=== PATIENT | female | born 1930 | race Caucasian/White ===

== ENCOUNTER 2016-12-02 12:07 | Emergency (ER) | payer MEDICARE, OTHER ==
[2016-12-02 12:27] VITALS: BP 97/50
[2016-12-02] MEDS ORDERED: Silver Sulfadiazine 1%* 20 GM ONE (13:11)
[2016-12-02] MEDS ORDERED: Mupirocin 2% OINT* TUBE TOPICAL ONE (13:22)
--- NOTE | 2016-12-02 14:29 | UC ---
Eric Vasquez Angela[facility] on 12/02/16 at 1307 . Laceration HPI - HPI Summary HPI Summary: In Room Note: This pt is a 86 y/o female presenting to [facility] c/o laceration on right arm s/p cut while going through a door yesterday afternoon. She reports that her arm got caught on the door and lost skin. Pt additionally notes dysuria and "sensation of UTI." She denies painful urination, cough, SOB, chest pain. Pt is currently on aspirin. PMHx: atrial fibrillation. MD's Note: Vital signs are stable, afebrile. 07/03 discomfort, non-smoker, hypothyroid, aortic valve replacement. Visit history: congestive heart failure, multiple allergies, pacemaker. Nurses Note: pt was cut while going through a door. pt rt upper lower arm is bandaged. pt states this injury happened last night. pt thinks her last tetnus was less than 5 years ago. - History Of Current Complaint Chief Complaint: UCLaceration Stated Complaint: ARM LACERATION Time Seen by Provider: 12/02/16 12:57 Hx Obtained From: Patient Laceration Location: Arm - right Pain Intensity: 4 Pain Scale Used: 0-10 Numeric - Allergies/Home Medications Allergies/Adverse Reactions: Allergies Allergy/AdvReac Type Severity Reaction Status Date / Time Amlodipine [From Norvasc] Allergy Unknown Verified 01/01/14 17:22 Reaction Details Cefixime [From Suprax] Allergy Unknown Verified 01/01/14 17:22 Reaction Details Cephalexin [From Keflex] Allergy Unknown Verified 01/01/14 17:22 Reaction Details Chloroquine Allergy Unknown Verified 01/01/14 17:22 Reaction Details Epinephrine Allergy Unknown Verified 01/01/14 17:22 Reaction Details Levofloxacin [From Levaquin] Allergy Unknown Verified 01/01/14 17:22 Reaction Details Naproxen [From Aleve] Allergy Unknown Verified 01/01/14 17:22 Reaction Details Penicillins Allergy Unknown Verified 01/01/14 17:22 Reaction Details Sodium Benzoate [From Suprax] Allergy Unknown Verified 01/01/14 17:22 Reaction Details Statins Allergy Unknown Verified 01/01/14 17:22 Reaction Details Sulfa Antibiotics Allergy Unknown Verified 01/01/14 17:22 Reaction Details Home Medications: Home Medications Aspirin TAB* [Aspirin 325 MG TAB*] 650 mg PO DAILY 12/02/16 [History Confirmed 12/02/16] Diphenhydramine-Acetaminophen [Tylenol Pm Extra Strength 500-25 mg] 1 tab PO 12/10 [History] PMH/Surg Hx/FS Hx/Imm Hx Endocrine History: Hypothyroidism Cardiovascular History: Hypertension, Pacemaker/ICD, Atrial Fibrillation - Surgical History Surgical History: Yes Surgery Procedure, Year, and Place: UTERUS PROLAPSE SURGERY. AORTIC VALVE REPLACEMENT. PACEMAKER. THYROIDECTOMY. T&A. 2 knees. 1 hip. fistula repair - Family History Known Family History: Positive: Diabetes - mother - Social History Alcohol Use: Rare Substance Use Type: None Smoking Status (MU): Never Smoked Tobacco - Immunization History Most Recent Influenza Vaccination: FALL 2012 Most Recent Tetanus Shot: UP TO DATE Most Recent Pneumonia Vaccination: UP TO DATE Review of Systems Constitutional: Negative Skin: Other - laceration on right arm Eyes: Negative ENT: Negative Respiratory: Negative Cardiovascular: Negative Gastrointestinal: Negative Genitourinary: Frequency Motor: Negative Neurovascular: Negative Musculoskeletal: Negative Neurological: Negative All Other Systems Reviewed And Are Negative: Yes Physical Exam Triage Information Reviewed: Yes Vital Signs: Initial Vital Signs Temp 98.1 F 12/02/16 12:21 Pulse 59 12/02/16 12:21 Resp 18 12/02/16 12:21 BP 97/50 12/02/16 12:21 Pulse Ox 98 12/02/16 12:21 Vital Signs Reviewed: Yes - Additional Comments The patient is well-nourished in no acute distress and in no acute pain. The skin is warm and skin color reflects adequate perfusion. RIGHT FOREARM: THERE IS SKIN ABRAIDED AND AREAS OF BLEEDING. AREA #1: 3.3 CM OVAL, AREA #2: 3.0 CM X 2.0 CM BLEEDING AREA, AREA #3: 1.0 CM ABRAIDED AREA. HEENT: The head is normocephalic and atraumatic. The pupils are equal and reactive. The conjunctivae are clear and without drainage. Nares are patent and without drainage. Mouth reveals moist mucous membranes and the throat is without erythema and exudate. The external ears are intact. The ear canals are patent and without drainage. The tympanic membranes are intact. Neck is supple with full range of motion and non-tender. Respiratory: Chest is non-tender. Lungs are clear to auscultation and breath sounds are symmetrical and equal. Cardiovascular: HEART IS IRREGULARLY IRREGULAR CONSISTENT WITH ATRIAL FIBRILLATION. There is no murmur or rub auscultated. There is no peripheral edema and pulses are symmetrical and equal. Abdomen: The abdomen is soft and non-tender. There are normal bowel sounds heard in all four quadrants and there is no organomegaly palpated. Musculoskeletal: There is no back pain noted. Extremities are non-tender with full range of motion. There is good capillary refill. There is no peripheral edema or calf tenderness elicited. Neurological: Patient is alert and oriented to person, place and time. The patient has symmetrical motor strength in all four extremities. Psychiatric: The patient has an appropriate affect and does not exhibit any anxiety or depression. Laceration Course/Dx - Course/Dx Course Of Treatment: On exam, HEART IS IRREGULARLY IRREGULAR CONSISTENT WITH ATRIAL FIBRILLATION. ON RIGHT FOREARM: THERE IS SKIN ABRAIDED AND AREAS OF BLEEDING. AREA #1: 3.3 CM OVAL, AREA #2: 3.0 CM X 2.0 CM BLEEDING AREA, AREA #3 : 1.0 CM ABRAIDED AREA. MDM: These areas were cleaned and nonviable skin was debrided. The area was soaked; Bactroban was placed, nonstick dressing, gauze, and shamar wrap were placed. The pt was given a sling. The pt was instructed to recheck with her PCP in 2 days and to leave the dressing on until her re-check. The pt additionally c/o vague dysuria. UA was obtained. UA is negative for UTI. I discussed with her and it sounds like she has a UTI even though her UA is negative. I treated her with Macrobid for 5 days. Medications have been included in the original chart and reviewed. Normal BP reading and no follow-up instructions required. - Differential Dx - Laceration/Wound Provider Diagnoses: 1. Abrasion of right forearm. 2. UTI Discharge - Discharge Plan Condition: Stable Disposition: HOME Prescriptions: Nitrofurantoin Monohyd Macro [Macrobid] 100 mg PO BID #10 cap Patient Education Materials: Urinary Tract Infection in Women (ED), Abrasion ( ED) Referrals: Sara Quick MD [Primary Care Provider] - Additional Instructions: WE DISCUSSED: ABRASIONS and Urinary Tract Infection 1. Unless this starts to hurt more, leave the dressing on until you follow up on Sunday. 2. Elevate arm. 3. Use sling to keep it protected; you can take off the sling to use a walker. 4. Watch for any red lines or fever, chills or increasing pain that would mean you have an infection. 5. No antibiotic by mouth is needed at this time. 6. This will take 2-3 weeks to heal. 7. Re-dress with Bactroban every other day and non-stick dressings and gauze and shamar wrap beginning in 2 days. 8. Call us with any questions or concerns AT ANY TIME. 9. Go to ED for increased pain, swelling, temperature, redness. 10. Call Dr. Quick to be followed up on Sunday if it is still bleeding. Otherwise, later in the week. 11. I have also treated you for a urinary tract infection; call Dr. Quick if the symptoms continue on Sunday. You should be improving by then or certainly by Sunday. The documentation as recorded by the Eric tay Angela accurately reflects the service I personally performed and the decisions made by me, Jorge Burnette MD.
== END 2016-12-02 14:40 | disposition home or self-care (01) ==
LOC: UCEAST 12:07
DX: S40.811A Abrasion of right upper arm, initial encounter (principal); N39.0 Urinary tract infection, site not specified; Z95.2 Presence of prosthetic heart valve; Z95.0 Presence of cardiac pacemaker; I48.91 Unspecified atrial fibrillation; W45.8XXA Other foreign body or object entering through skin, initial encounter
CPT/HCPCS: 81003; 99213; A9270-GY; G0463

== ENCOUNTER 2016-12-07 09:16 | Emergency (ER) | payer MEDICARE, OTHER ==
[2016-12-07 10:02] VITALS: BP 124/32
--- NOTE | 2016-12-07 10:27 | UC ---
HPI Wound/Suture Re-check - HPI Summary HPI Summary: This is an 86 yo female who returns for follow up regarding the wound over her R arm. She was seen 12/02 for the same complaint which was the date of injury. She was tx'd for a UTI at that time with Macrobid. She has changed the bandage twice, once by her caregiver and the other by Dr Quick's office. She reports some increased redness last night. No fever, chills, malaise or significant drainage. - History Of Current Complaint Chief Complaint: UCSkin Stated Complaint: WOUND RECHECK - Allergies/Home Medications Allergies/Adverse Reactions: Allergies Allergy/AdvReac Type Severity Reaction Status Date / Time Amlodipine [From Norvasc] Allergy Unknown Verified 12/07/16 10:00 Reaction Details Cefixime [From Suprax] Allergy Unknown Verified 12/07/16 10:00 Reaction Details Cephalexin [From Keflex] Allergy Unknown Verified 12/07/16 10:00 Reaction Details Chloroquine Allergy Unknown Verified 12/07/16 10:00 Reaction Details Epinephrine Allergy Unknown Verified 12/07/16 10:00 Reaction Details Levofloxacin [From Levaquin] Allergy Unknown Verified 12/07/16 10:00 Reaction Details Naproxen [From Aleve] Allergy Unknown Verified 12/07/16 10:00 Reaction Details Penicillins Allergy Unknown Verified 12/07/16 10:00 Reaction Details Sodium Benzoate [From Suprax] Allergy Unknown Verified 12/07/16 10:00 Reaction Details Statins Allergy Unknown Verified 12/07/16 10:00 Reaction Details Sulfa Antibiotics Allergy Unknown Verified 12/07/16 10:00 Reaction Details PMH/Surg Hx/FS Hx/Imm Hx Cardiovascular History: Congestive Heart Failure, Atrial Fibrillation - Surgical History Surgical History: Yes Surgery Procedure, Year, and Place: UTERUS PROLAPSE SURGERY. AORTIC VALVE REPLACEMENT. PACEMAKER. THYROIDECTOMY. T&A. 2 knees. 1 hip. fistula repair - Family History Known Family History: Positive: Diabetes - mother - Social History Alcohol Use: Rare Substance Use Type: None Smoking Status (MU): Never Smoked Tobacco - Immunization History Most Recent Influenza Vaccination: FALL 2012 Most Recent Tetanus Shot: UP TO DATE Most Recent Pneumonia Vaccination: UP TO DATE Review of Systems Constitutional: Negative Skin: Other - wound ENT: Negative Respiratory: Negative Cardiovascular: Negative Gastrointestinal: Negative Genitourinary: Negative Motor: Negative Neurovascular: Negative Musculoskeletal: Negative Neurological: Negative Psychological: Negative Is Patient Immunocompromised?: No All Other Systems Reviewed And Are Negative: Yes Physical Exam Triage Information Reviewed: Yes Appearance: Well-Appearing - accompanied by her Vital Signs: Initial Vital Signs Temp 98.6 F 12/07/16 09:52 Pulse 60 12/07/16 09:52 Resp 16 12/07/16 09:52 BP 124/32 12/07/16 09:52 Pulse Ox 95 12/07/16 09:52 Vital Signs Reviewed: Yes ENT Exam: Normal ENT: Positive: Hearing grossly normal Neck: Positive: Supple, Nontender Respiratory: Positive: Lungs clear. Negative: Crackles, Rhonchi, Wheezing Cardiovascular: Positive: RRR, Murmur:Sys:Grade _?_/ - 4/6 murmur Abdomen Description: Positive: Soft Musculoskeletal: Positive: Strength Intact Skin: Positive: Other - 3 open wounds over dorsal R lower arm. beefy red base and mild purulent drainage. Minimal surrounding erythema and edema Course/Dx - Course Course Of Treatment: Instructions given to cont wound care with daily dressing change. Start Keflex for concern of potential infection. Follow up recommended in ~5d either here or with Dr Quick. Of note Keflex is listed as an allergy, but she reports only PCN which caused a tingling sensation in her fingers - Differential Dx - Laceration/Wound Differential Diagnoses: Abscess, Cellulitis, Healing Wound Provider Diagnoses: 1. R arm wound - complicated by mild infection Discharge - Discharge Plan Condition: Stable Disposition: HOME Prescriptions: Cephalexin CAP* [Keflex CAP*] 500 mg PO TID #21 cap Patient Education Materials: Acute Wound Care (ED) Referrals: Sara Quick MD [Primary Care Provider] - 5 Days Additional Instructions: Instructions: 1. Take antibiotics as directed for the next 7d 2. Change dressing daily, apply antibiotic ointment cover with non-stick dressing and wrap 3. Monitor for worsening signs of infection
== END 2016-12-07 10:30 | disposition home or self-care (01) ==
LOC: UCEAST 09:16
DX: L08.89 Other specified local infections of the skin and subcutaneous tissue (principal); S41.101D Unspecified open wound of right upper arm, subsequent encounter; X58.XXXD Exposure to other specified factors, subsequent encounter; Z88.0 Allergy status to penicillin; Z88.2 Allergy status to sulfonamides; I50.9 Heart failure, unspecified; I48.91 Unspecified atrial fibrillation
CPT/HCPCS: 99212; G0463

== ENCOUNTER 2017-01-03 12:38 | Emergency (ER) | payer MEDICARE, OTHER ==
[2017-01-03 12:48] VITALS: BP 96/69
--- NOTE | 2017-01-03 13:17 | UC ---
Lower Extremity/Ankle HPI - HPI Summary HPI Summary: WAS GOING TO TAKE HER PANTS OFF WHEN SHE LOST HER BALANCE AND FELL. STRUCK HER RIGHT LATERAL THIGH ON THE TILE FLOOR. NOW HAS PAIN AND SWELLING. LIGHTLY HIT RIGHT SIDE OF HEAD ON THE GROUND. NO LOC. DENIES GAMBINO, NAUSEA, VISUAL DISTURBANCE , DIZZINESS. AT BASELINE WALKS WITH A WALKER. PAIN IS WORSE WITH WEIGHT BEARING. STATES PAIN FEELS MORE IN THE SOFT TISSUES THAN IN THE JOINTS. - History of Current Complaint Chief Complaint: UCLowerExtremity Stated Complaint: LEG INJURY Time Seen by Provider: 01/03/17 12:53 Hx Obtained From: Patient, Family/Apiculturist - Onset/Duration: Sudden Onset, Lasting Hours Severity Initially: Moderate Severity Currently: Moderate Pain Intensity: 5 Pain Scale Used: 0-10 Numeric Aggravating Factor(s): Standing, Ambulation Alleviating Factor(s): Rest Able to Bear Weight: Yes - Allergies/Home Medications Allergies/Adverse Reactions: Allergies Allergy/AdvReac Type Severity Reaction Status Date / Time Amlodipine [From Norvasc] Allergy Unknown Verified 12/07/16 10:00 Reaction Details Cefixime [From Suprax] Allergy Unknown Verified 12/07/16 10:00 Reaction Details Cephalexin [From Keflex] Allergy Unknown Verified 12/07/16 10:00 Reaction Details Chloroquine Allergy Unknown Verified 12/07/16 10:00 Reaction Details Epinephrine Allergy Unknown Verified 12/07/16 10:00 Reaction Details Levofloxacin [From Levaquin] Allergy Unknown Verified 12/07/16 10:00 Reaction Details Naproxen [From Aleve] Allergy Unknown Verified 12/07/16 10:00 Reaction Details Penicillins Allergy Unknown Verified 12/07/16 10:00 Reaction Details Sodium Benzoate [From Suprax] Allergy Unknown Verified 12/07/16 10:00 Reaction Details Statins Allergy Unknown Verified 12/07/16 10:00 Reaction Details Sulfa Antibiotics Allergy Unknown Verified 12/07/16 10:00 Reaction Details PMH/Surg Hx/FS Hx/Imm Hx Endocrine History: Hypothyroidism Cardiovascular History: Cardiac Disease, Hypertension, Atrial Fibrillation - Surgical History Surgical History: Yes Surgery Procedure, Year, and Place: UTERUS PROLAPSE SURGERY. AORTIC VALVE REPLACEMENT. PACEMAKER. THYROIDECTOMY. T&A. 2 knees. 1 hip. fistula repair - Family History Known Family History: Positive: Diabetes - mother - Social History Alcohol Use: Rare Substance Use Type: None Smoking Status (MU): Never Smoked Tobacco - Immunization History Most Recent Influenza Vaccination: FALL 2012 Most Recent Tetanus Shot: UP TO DATE Most Recent Pneumonia Vaccination: UP TO DATE Review of Systems Constitutional: Negative Skin: Negative Respiratory: Negative Cardiovascular: Negative Gastrointestinal: Negative Musculoskeletal: Myalgia All Other Systems Reviewed And Are Negative: Yes Physical Exam Triage Information Reviewed: Yes Appearance: Well-Appearing, No Pain Distress, Well-Nourished Vital Signs: Initial Vital Signs Temp 98.1 F 01/03/17 12:44 Pulse 59 01/03/17 12:44 Resp 16 01/03/17 12:44 BP 96/69 01/03/17 12:44 Pulse Ox 97 01/03/17 12:44 Vital Signs Reviewed: Yes Eyes: Positive: Conjunctiva Clear ENT: Positive: Hearing grossly normal, TMs normal Neck: Positive: Supple Respiratory: Positive: No respiratory distress, No accessory muscle use Cardiovascular: Positive: Pulses Normal Abdomen Description: Positive: Soft Musculoskeletal: Positive: ROM Intact, Other: - FULLNESS AND TENDERNESS OVER RIGHT LATERAL UPPER LEG Neurological: Positive: Alert Psychological: Positive: Age Appropriate Behavior Skin: Negative: rashes Diagnostics - Radiology RIIGHT FEMUR XRAY Xray Interpretation: No Acute Changes Radiology Interpretation Completed By: Radiologist Lower Extremity Course/Dx - Differential Dx/Diagnosis Provider Diagnoses: CONTUSION RIGHT LEG Discharge - Discharge Plan Condition: Stable Disposition: HOME Patient Education Materials: Contusion in Adults (ED) Referrals: Sara Quick MD [Primary Care Provider] - If Needed Additional Instructions: XRAY TODAY UNREMARKABLE FOR FRACTURE OR DISLOCATION. REST, ICE CONTUSION: Your injury has resulted in a contusion -- a crushing of the deep tissues. No injury to important structures was detected during the physician's exam. Contusions vary in the amount of pain they cause, and in the length of time required for healing. Typically, the area will become bruised, and will remain painful to touch for two or three weeks. However, most patients are back to working and playing within a few days. After the initial period of rest and cold-packs, your symptoms (together with the doctor's recommendations) will determine how rapidly you can get back to full activity. Usually this means "do what feels okay, but don't do things that hurt." If re-examination was recommended, it's important to follow up as instructed. Call the doctor or return any time if pain increases, if swelling becomes severe, if you develop numbness or weakness in an injured extremity, or if any other alarming symptoms occur.
--- NOTE | 2017-01-03 13:53 | RAD ---
Indication: Lateral RIGHT femur pain post fall. 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 Comparison: No relevant prior exams available on the [facility] PACS for comparison. Technique: AP and lateral views RIGHT femur. Report: Normal articular alignment at the hip with moderately severe axial joint space narrowing with paucity of osteophytosis favoring sequela of inflammatory arthropathy over typical degenerative arthropathy. RIGHT total knee prosthesis in place with normal alignment. The caudal margin of the tibial component is not fully included in the [id number] on the AP view. No stigmata of prosthesis loosening or periprosthetic fracture within limits of femur exam. No fracture of the femur evident. Bone density appears decreased throughout. Skeletal muscle atrophy and vascular calcifications. Unremarkable soft tissue contours. IMPRESSION: No evidence for fracture.
== END 2017-01-03 14:20 | disposition home or self-care (01) ==
LOC: UCEAST 12:38
DX: S80.11XA Contusion of right lower leg, initial encounter (principal); E03.9 Hypothyroidism, unspecified; I10 Essential (primary) hypertension; I48.91 Unspecified atrial fibrillation; X58.XXXA Exposure to other specified factors, initial encounter; Y92.9 Unspecified place or not applicable
CPT/HCPCS: 99211; G0463

== ENCOUNTER 2017-02-06 16:13 | Inpatient (IN) | payer MEDICARE, OTHER ==
[2017-02-06 21:07] LABS: ABS Basophils 0.1 10^3/ul (0-0.2); ABS Eosinophils 0.2 10^3/ul (0-0.6); ABS Lymphocytes 0.8 10^3/ul (1.0-4.8); ABS Monocytes 0.8 10^3/ul (0-0.8); ABS Nucleated RBC 0.01 10^3/ul; Eosinophil % 2.2 % (0-6); Hematocrit 35 % (35-47); Hemoglobin 11.1 g/dl (12.0-16.0); Lymphocyte % 10.4 % (25-47); Mean Corpuscular HGB Conc 31 g/dl (31-36); Mean Corpuscular Hemoglobin 28 pg (27-31); Mean Corpuscular Volume 90 fL (80-97); Mean Platelet Volume 11 um3 (7.4-10.4); Nucleated Red Blood Cells % 0.1; Platelet Count 151 10^3/ul (150-450); Red Blood Count 3.93 10^6/ul (4.0-5.4); Red Cell Distribution Width 17 % (10.5-15); White Blood Count 7.9 10^3/ul (3.5-10.8)
[2017-02-06 21:22] LABS: EGFR Non-African American 25.2 (>60)
--- NOTE | 2017-02-06 21:46 | RAD ---
Indication: Congestive heart failure. CHF. Comparison: January 01, 2014 Technique: Sitting AP and lateral chest views. Report: Mild prominence of the interstitial markings most prominent in the lower lung zones. Mild blunting of the posterior costophrenic angles consistent with small effusions. Negative for pneumothorax. RIGHT atrial and RIGHT ventricular level pacemaker leads. Cardiomegaly increased over the prior exam. Endovascular aortic valve prosthesis. Prominent central pulmonary vasculature with peripheral attenuation. Unremarkable mediastinal contours. IMPRESSION: Stigmata of chronic obstructive pulmonary disease and probable pulmonary arterial hypertension. Cardiomegaly and potential mild interstitial pulmonary edema.
[2017-02-06] MEDS: Pregabalin CAP(*) 25 MG PO SCH (22:30)
[2017-02-06] MEDS: Furosemide IV* 10 MG/ML VIAL (40 MG) IV SCH (23:28)
--- NOTE | 2017-02-07 00:01 | HP ---
CC: Dr. Leroy James at [facility]. * HISTORY AND PHYSICAL: DATE OF ADMISSION: 02/06/17 HISTORY OF PRESENT ILLNESS: Naz Kaur is an 86-year-old woman admitted with congestive heart failure, who was not responding to outpatient therapy at home. The patient underwent a transcatheter aortic valve replacement in the fall of 2012. This was done for the diagnosis of severe aortic stenosis. Following the procedure, she had a CVA with resultant right hemiparesis. She developed atrial fibrillation, complete heart block, and required placement of a permanent pacemaker. She had a complicated postoperative course with falling, development of a subdural hematoma in May 2013. She also had respiratory failure at that time with elevated cardiac biomarkers and documented left ventricular ejection fraction in the 30s. Additionally, she had cellulitis, urinary tract infection. She had persistent leg edema. In the summer, she was in [place], and at that time, she was admitted for congestive heart failure failing outpatient therapy at home. She had been on warfarin for atrial fibrillation, stopped because of a subdural hematoma, and then was on clopidogrel, which since then has been on stopped. During the 2013 hospitalization, she was seen by Dr. Negron from Cardiology here. He felt that she had fatigue, anorexia, and right-sided heart failure of unclear etiology over the previous several months. He was concerned about the possible paravalvular leak and the possibility of fistula between the paraaortic valve area into the right ventricle. The echo was compared to previous echoes and it was felt that this was unchanged. She was placed on IV bumetanide during this hospitalization and she diuresed from initial weight of 204 pounds down to 180 pounds. With this, her legs became more mobile, less swollen, and she had felt generally better, although remained quite fatigued. Hypokalemia and hypomagnesemia were repleted. She was started on Aldactone prior to discharge. She was not placed on lisinopril because of hypotension when she had been on it previously. She received physical therapy. She was felt to be at dry weight at the time of discharge. Lyrica had been stopped during this admission, but subsequently has been restarted. At the time of her discharge at that time, she was on torsemide 20 mg daily, spironolactone 25 mg one- half daily, clopidogrel 75 mg daily, magnesium oxide 400 mg twice a day, Toprol-XL 50 mg once a day, sertraline 50 mg once a day, flecainide 100 mg twice a day, ferrous sulfate 325 mg twice a day, Synthroid 75 mcg once a day, hydrochlorothiazide 25 mg once a day, and supplements. During the summer of 2014, when she was in [place], ([place] here in the [place]) her weight was 172 pounds. She had had various hospitalizations in the previous months. I felt that she had worsening edema. She was off the diuretics at that time and furosemide and spironolactone were restarted. She seemed to improve. Her weight down to 155 pounds at that time, then then 148-1/2 pounds.. Bupropion was prescribed for depression in addition to her sertraline. At one point her torsemide was cut back to 3 times a week. By the end of October, she was not taking the diuretics regularly and her weight was up to 160 pounds. Her would adjust her diuretics according to whether they were going out to eat, whether she was going to be in a restaurant and did not want to urinate. Echocardiogram done was limited due to poor parasternal windows. She was noted to have mild concentric LVH, estimated EF of 35% to 40%, moderate left atrial dilatation, right ventricular cavity size normal with mildly reduced systolic function, pacemaker wire noted, evidence of borderline elevated pulmonary hypertension, mild mitral regurgitation and mild mitral stenosis. Aortic valve gradient suggested nonobstructive prosthesis. 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 This was present on AMADOR performed 01/01/14 (or a possible annulus to artery fistula). There were felt to be no differences in her AMADOR. This was compared to 01/01/14. We tried to stop her Lyrica because of leg swelling, but she wanted to go back on it because of pain. The next time I heard from her next was in 2015. 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 When I saw her on 11/12/15, she was on Entresto. She was having diarrhea. In November 2015, she had the rectovaginal fistula repaired by Dr. Wick at [facility], then removal of the bag in February. In July 2016, she underwent a right total knee replacement. She had been doing fairly well over the course of the summer. We figured out that her diarrhea that she was having was due to lactose. Her main problem was her shoulder. She saw an orthopedist in [place] who told her that she could have surgery for her shoulder, but he would not guarantee the results. She was doing physical therapy. In November, she was treated for an abrasion on her forearm and she also had a possible UTI. Although the UA was negative, she was given a 5-day prescription for Macrobid. Then, about a month ago, the patient's called to make an appointment to be seen saying she seemed to be getting weaker,shaky. Of note, she had fallen, had been to the emergency room related to falls on December 02, January 03, January 29. She was seen in our office on 01/08/17. At that time, she complained of ongoing right thigh pain, visual disturbance, (subsequently felt to be due to droopy eyelids), and generalized weakness. She was seen again on 01/22/17 at which time she was complaining of weakness. At that time, I felt that she probably would be best off to be taking 20 rather than 40 of Lasix because of her elevated BUN and creatinine. On 01/29/17, she fell going into the toilet, had loss of consciousness. She went to the ER, was worked up. On 02/02/17, she was feeling sleepy, a lot weaker. She was having difficulty moving. It was difficult to transfer her. I saw her on 02/05/17. She gave the history of having fallen several times and feeling weak. She had been worse and she had fallen 2 days prior. Her breathing was more raspy. Her legs had been more swollen. She had difficulty moving her feet. She had been taking 20 mg of Lasix except for 1 day when she took 40. She was not eating much. She had recent labs done which I reviewed. I offered hospitalization which she declined, but she decided she did want to come in today and she is being admitted at this time. PAST MEDICAL HISTORY: Otherwise significant for the following medical problems: 1. Congestive heart failure. 2. History of atrial fibrillation. 3. History of complete heart block, status post pacemaker. 4. History of hypertension. 5. History of CVA (see above). 6. History of polymyalgia rheumatica. 7. History of fibromyalgia. 8. Osteoarthritis with severe arthritis of the right knee, status post total knee replacement. 9. History of depression. 10. Impingement, left shoulder with arthritis. 11. Hypothyroidism. 12. Status post TAVR for aortic stenosis. 13. History of mitral stenosis on echo. PAST SURGICAL HISTORY: Prior surgical procedures include: 1. Hemorrhoidectomy. 2. Vaginal reconstruction with mesh. 3. Thyroidectomy. 4. Cataract extraction. 5. Breast ductectomy. 6. Bilateral total knee replacements. 7. Hysterectomy. 8. TAVR. 9. Repair of rectovaginal fistula. CURRENT MEDICATIONS: As follows: 1. Lyrica 75 mg twice daily. 2. Levothyroxine 88 mcg daily. 3. Metoprolol 50 mg one-half daily. 4. Vitamin D3 2000 units daily. 5. Magnesium oxide 400 mg twice a day (the patient says she is not taking this) . 6. Cyanocobalamin B12 1000 mcg daily. 7. Spironolactone 25 mg daily (not clear if she is taking this). 8. Ramipril 2.5 mg daily. 9. Isosorbide mononitrate extended release 30 mg daily. 10. Furosemide 20 to 40 mg daily. 11. Loperamide 2 mg p.r.n. 12. Aspirin 325 mg daily. 13. Flecainide 100 mg daily. 14. Sertraline 100 mg daily. 15. Acetaminophen as needed. 16. Centrum Silver 1 daily. ALLERGIES/SENSITIVITIES: Are to SULFA, STATINS, KEFLEX (diarrhea), CHLOROQUINE PHOSPHATE, LEVAQUIN (tendinitis), EPINEPHRINE, NORVASC, PENICILLINS, ALEVE (GI bleeding), SUPRAX (ecchymosis). HABITS: Tobacco, none, but she is a former smoker. ETOH, none. FAMILY HISTORY: Noncontributory. SOCIAL HISTORY/PERSONAL HISTORY: The patient is . She lives in her own home. She has a full-time aide named Lita who is with her today. Her is with her as well. She is retired. She spends her [place] in [place] , [place] in [place], and also spends time in the [facility] area where she has a home. REVIEW OF SYSTEMS: She is very fatigued. Her appetite has been poor. She sleeps a lot. She denied fevers, chills, or sweats. Skin: She bruises very frequently. She had recent skin lacerations, tears, abrasions. HEENT: Diminished vision with drooping of her eyelids. Nodes: Negative. Heme: See above. Breast: Negative. Endocrine: See above. Respiratory: Occasional cough, shortness of breath. Cardiovascular: See above. GI: Diarrhea related to lactose. : She has urinary incontinence; however, wears Depends. CRYSTAL CALIBRATOR: Negative. Musculoskeletal: See above. Neuro: See above. Psychiatric: See above. PHYSICAL EXAMINATION GENERAL: She is an elderly white female in no acute distress. VITAL SIGNS: Blood pressure 118/60, pulse 58, respirations 18, temperature 97.3 , and O2 sat 95%. SKIN: She has scattered ecchymoses on her arms. HEENT: Atraumatic and normocephalic. She has a right facial droop. Mouth and pharynx are unremarkable. NECK: Supple. CHEST: Shows bibasilar rales. Pacemaker left upper chest. HEART: Regular. Normal S1, S2. Grade 2/6 systolic murmur. ABDOMEN: Soft with mild midabdominal tenderness without rebound or guarding. No masses or organomegaly. Bowel sounds are active. EXTREMITIES: Showed approximately 2+ pitting edema. NEUROLOGIC: She is alert and oriented. She has right central 7th nerve weakness. She has 4/5 weakness of the right upper extremity. She is not walking today. LABORATORY DATA: Pending. Previous labs done recently showed elevated BNP, LFTs, creatinine. IMPRESSION: The patient has failed outpatient therapy and I am admitting her for work up of her worsening heart failure, rising creatinine, and elevated LFTs. She will receive IV diuretics. She is a full code per her wishes. In terms of DVT prophylaxis, she is on aspirin. In view of her recent falls, including hitting her head, we will not give heparin. She has had a subdural hematoma in the past as well. She should get SCDs. Workup will include transthoracic echocardiogram, EKG, labs, renal and bladder ultrasound, liver ultrasound (right upper quadrant). I am also going to get venous duplex studies of her lower extremities. [id number]/[facility] #: [id number] [facility]ICAL CENTERLanny
[2017-02-07] MEDS ORDERED: Flecainide TAB* 100 MG PO ONE (01:00)
[2017-02-07] MEDS: Levothyroxine TAB* 88 MCG TAB PO SCH (05:41)
[2017-02-07] MEDS: Isosorbide Mononitrate ER TAB* 30 MG PO SCH (08:23)
[2017-02-07] MEDS: Furosemide IV* 10 MG/ML VIAL (40 MG) IV SCH (08:23)
[2017-02-07] MEDS: Flecainide TAB* 100 MG PO SCH (08:24)
[2017-02-07] MEDS: Pregabalin CAP(*) 25 MG PO SCH ×2 (08:24→20:18)
[2017-02-07] MEDS: Cholecalciferol TAB* 1000 UNITS PO SCH (08:24)
[2017-02-07] MEDS: Sertraline* 100 MG TAB PO SCH (08:24)
[2017-02-07] MEDS: Aspirin TAB* 325 MG PO SCH (08:24)
[2017-02-07] MEDS: Metoprolol Succinate XL TAB* 25 MG PO SCH (08:24)
[2017-02-07] MEDS: Ramipril CAP* 2.5 MG PO SCH (08:24)
[2017-02-07] MEDS: Spironolactone TAB* 25 MG PO SCH (08:25)
[2017-02-07] MEDS ORDERED: Influenza VAC *QUAD* 2017-18* 0.5 ML SYRINGE IM ONE (09:00)
--- NOTE | 2017-02-07 11:46 | RAD ---
HISTORY: Bilateral leg swelling TECHNIQUE: Multiple transverse and longitudinal ultrasound images were obtained of the veins of the bilateral lower extremities using grayscale, color Doppler, and spectral Doppler imaging with and without compression and with augmentation. FINDINGS: VEINS: The common femoral vein, deep femoral vein, femoral vein and popliteal vein are compressible throughout their course, with normal flow on color Doppler imaging and normal response to augmentation on spectral Doppler imaging. SOFT TISSUES: There is subcutaneous edema overlying the bilateral lower legs. IMPRESSION: No sonographic evidence of deep vein thrombosis.
--- NOTE | 2017-02-07 11:52 | RAD ---
INDICATION: Elevated liver function studies.] Quadrant pain. COMPARISON: None TECHNIQUE: Longitudinal and transverse scans of the abdomen were obtained. Doppler interrogation of the hepatic and portal venous system was performed. FINDINGS: Liver: The liver is normal in size and echogenicity. There are no focal masses. The liver measures 17.2 cm in cephalocaudal dimension. Vessels: There is normal hepatic and portal venous flow. Bile ducts: There is no evidence of intrahepatic or extrahepatic ductal dilatation. The common duct measures 0.4 cm. Gallbladder: There are small gallstones or gallbladder sludge. There is no evidence of cholelithiasis, thickening of the gallbladder wall, or pericholecystic fluid. Pancreas: The visualized portions of the pancreas are normal Spleen:The spleen is normal in size and echogenicity. The spleen measures 12.2 cm. Kidneys: The kidneys are normal in size and echogenicity. There are no masses or calculi. There is no evidence of hydronephrosis. The right kidney measures 10.1 x 4.5 x 3.9 cm and the left kidney measures 9.7 x 4.6 x 3.9 cm. IVC and aorta: The aorta and superior vena cava appear normal. Fluid: There is no ascites. Other: None. IMPRESSION: SMALL GALLSTONES VERSUS GALLBLADDER SLUDGE, OTHERWISE NEGATIVE
--- NOTE | 2017-02-07 12:02 | RAD ---
INDICATION: Chronic kidney disease COMPARISON: None TECHNIQUE: Real time ultrasound images of the urinary bladder were acquired with faustin scale and Doppler color flow imaging. FINDINGS: The frye of the urinary bladder are uniform in thickness measuring approximately 2 mm. The prevoid volume of the urinary bladder measures 6.5 x 4.8 x 7.2 cm yielding an approximate volume of 116 mL. No postvoid volume was acquired. Normal ureteral jets are identified bilaterally. IMPRESSION: Sonographically normal urinary bladder. The patient did not have to void at the conclusion of the procedure and therefore no post void residual was measured.
[2017-02-07] MEDS ORDERED: Perflutren Lipid Microsphere* 3 ML VIAL ONE (13:18)
--- NOTE | 2017-02-07 16:49 | ECHO ---
Amended Report Patient: BAHMAN GARRISON [facility] Rec#: [id number] : 1930 Date: 02/07/2017 Age: 86y Height: 172.72 cm / 68.0 in Weight: 90.72 kg / 199.9 lbs Sex: F BSA: 2.04 Room#: 402 Admit Date#: 02/06/2017 Type: Inpatient Referring: Sara Quick MD Reading: Mi Ferreira MD Electroencephalograph Technician: Toyin Whaley [facility] Transthoracic Echocardiogram Indication: CHF BP: 144/60 HR: 60 Rhythm: Paced Findings History: CHF,a-fib,s/p pacer insert,HTN,CVA,s/p TAVR,former smoker,2/6 systolic murmur. Technical Comments: The study is technically difficult. Definity used to enhance endocardial borders. The study is technically limited due to patient body habitus. The study is technically limited due to the patient's smoking history. Left Ventricle: The left ventricular chamber size is normal. Moderate concentric left ventricular hypertrophy is observed. Severe global hypokinesis of the left ventricle is observed.lateral wall moves best. There is severely decreased left ventricular systolic function. The estimated ejection fraction is 25-30%. There is abnormal ventricular septal wall motion consistent with right ventricular pacemaker. The left ventricular diastolic filling pattern is restrictive. Left Atrium: The left atrium is severely dilated. Right Ventricle: The right ventricle is mildly dilated. The right ventricular global systolic function is low normal. The septum has abnormal paradoxical motion consistent with RV pacemaker. A pacemaker wire is visualized in the right ventricle. Right Atrium: The right atrium is moderate to severely dilated. A pacemaker wire is visualized in the right atrium. Aortic Valve: The aortic valve structure is not well visualized. It is reported to be a TAVR/bioprosthetic valve. Type and size unavailable. There is moderate aortic regurgitation.Evidence of communication from aortic annulus into RV on 3 and 5 chamber images. There is severe aortic stenosis. The mean gradient of the aortic valve is 40.69 mmHg. The aortic valve area, by VTI's, is calculated at 0.6 cm2. Highest aortic valve velocity was acquired with Pedoff in apical position. Mitral Valve: There is mitral annular calcification. The mitral valve leaflets are moderately thickened. There is moderate mitral regurgitation. Tricuspid Valve: The tricuspid valve leaflets are normal. There is moderate tricuspid regurgitation. The right ventricular systolic pressure is estimated at 49 mmHg. There is evidence of moderate pulmonary hypertension. There is no tricuspid stenosis. Pulmonic Valve: The pulmonic valve appears normal. There is no evidence of pulmonic regurgitation. There is no pulmonic stenosis. Pericardium: A pericardial fat pad is visualized. Aorta: There is no dilatation of the ascending aorta. There is no dilatation of the aortic arch. There is no dilation of the aortic root. Pulmonary Artery: The main pulmonary artery appears normal. Venous: The venous system is not well visualized. Contrast: Definity was used to optimize study. A total of 5 ml used. Intravenous contrast was used to enhance endocardial border definition. Conclusions Amended Report Moderate concentric left ventricular hypertrophy is observed. Severe global hypokinesis of the left ventricle is observed.lateral wall moves best. The estimated ejection fraction is 25-30%. The left ventricular diastolic filling pattern is restrictive. The right ventricular global systolic function is low normal. The left atrium is severely dilated. The right atrium is moderate to severely dilated. The aortic valve is reported to be a TAVR/bioprosthetic valve, type and size unavailable. There is moderate aortic regurgitation multiple jets, shortened P 1/2, no reversal of flow in the descending aorta. Severe prosthetic stenosis with peak velocity across the aortic valve Greater Than 4 m/s, mean gradient 40 mmHg, DI 0.25. Evidence of communication from aortic annulus to RV on color images 3 and 5 chamber views. There is mitral annular calcification. The mitral valve leaflets are moderately thickened. There is moderate mitral regurgitation. There is moderate tricuspid regurgitation. There is evidence of moderate pulmonary hypertension estimated at 49 mmHg. Compared with prior echo of 12/16/14, EF has decreased from 35-40%, restrictive diastolic filling newly noted, the flow seen from AV annulus to right side seen previously, the AI is newly noted, severe is new. The degree of MR and TR has increased from mild, PA pressure previously 29 mmHg. Measurements Name Value Normal Range RVIDd (AP) 2D 2.4 cm (0.9 - 2.6) RVDdMajor (2D) 5.6 cm (2.2 - 4.4) RAd ISD 4CH 6.7 cm (3.4 - 4.9) RA (A4C)W 5.3 cm (2.9 - 4.6) IVSd (2D) 1.5 cm (0.6 - 1) LVPWd (2D) 1.3 cm (0.6 - 1) LVIDd (2D) 4.6 cm (3.6 - 5.4) LVIDs (2D) 3.8 cm - LV FS (2D) 17 % (25 - 45) Aortic Annulus 1.7 cm (1.4 - 2.6) Ao root diameter (2D) 2.6 cm (2.1 - 3.5) Ascending Ao 3 cm (2.1 - 3.4) Aortic arch 2.8 cm (1.8 - 3.4) Descending Ao 1.5 cm - LA dimension (AP) 2D 5.2 cm (2.3 - 3.8) LAd ISD 4CH 7.9 cm (2.9 - 5.3) LA ISD 4CH W 4.9 cm (2.5 - 4.5) Name Value Normal Range LA ESV SP 4CH (A/L) 105 ml - LA ESV SP 2CH (A/L) 123 ml - LA ESV BP (A/L) 116 ml - LA ESV BP (A/L) index 65.4 ml/m2 - LA ESV SP 4CH (MOD) 98 ml - LA ESV SP 2CH (MOD) 118 ml - Name Value Normal Range MV E-wave Vmax 1.2 m/sec - MV deceleration time 100 msec - MV A-wave Vmax 0.5 m/sec - MV E:A ratio 2.73 ratio - LV septal e' Vmax 0.04 m/sec - LV lateral e' Vmax 0.09 m/sec - LV E:e' septal ratio 30 ratio - LV E:e' lateral ratio 13.33 ratio - Name Value Normal Range AV Vmax 4.1 m/sec - AV VTI 106 cm - AV peak gradient 68.1 mmHg - AV mean gradient 40.69 mmHg - LVOT diameter 1.8 cm - LVOT Vmax 1.1 m/sec - LVOT VTI 26 cm - LVOT peak gradient 4.75 mmHg - LVOT mean gradient 2.41 mmHg - JOE (continuity Vmax) 0.7 cm2 - JOE (continuity VTI) 0.6 cm2 - AR PHT 291 msec - AR peak gradient 80.52 mmHg - Name Value Normal Range MR Vmax 4 m/sec - MR VTI 131.1 cm - Name Value Normal Range TR Vmax 3.2 m/sec - TR peak gradient 41 mmHg - RAP 8 mmHg - RVSP 49 mmHg - Name Value Normal Range PV Vmax 0.6 m/sec - PV peak gradient 1.49 mmHg -
[2017-02-07] MEDS ORDERED: Bumetanide IV* 0.25 MG/ML 4 ML VIAL SLOW PUSH ONE (18:00)
[2017-02-08 02:14] LABS: Urine Appearance Cloudy; Urine Blood 1+ (Negative); Urine Color Yellow; Urine Ketones Negative (Negative); Urine Protein 1+(30 mg/dL) (Negative); Urine Specific Gravity 1.011 (1.010-1.030); Urine Urobilinogen Negative (Negative)
[2017-02-08] MEDS: Levothyroxine TAB* 88 MCG TAB PO SCH (05:52)
[2017-02-08 06:04] LABS: Hematocrit 34 % (35-47); Hemoglobin 10.8 g/dl (12.0-16.0); Mean Corpuscular HGB Conc 32 g/dl (31-36); Mean Corpuscular Hemoglobin 29 pg (27-31); Mean Corpuscular Volume 89 fL (80-97); Mean Platelet Volume 10 um3 (7.4-10.4); Platelet Count 145 10^3/ul (150-450); Red Blood Count 3.78 10^6/ul (4.0-5.4); Red Cell Distribution Width 16 % (10.5-15); White Blood Count 6.9 10^3/ul (3.5-10.8)
[2017-02-08 06:19] LABS: EGFR Non-African American 23.5 (>60)
[2017-02-08] MEDS: Flecainide TAB* 100 MG PO SCH (08:32)
[2017-02-08] MEDS: Metoprolol Succinate XL TAB* 25 MG PO SCH (08:32)
[2017-02-08] MEDS ORDERED: Digoxin IV* 0.5 MG/2 ML AMP (0.25 MG/ML) IV SLOW PU ONE ×2 (08:33→14:57)
[2017-02-08] MEDS: Aspirin TAB* 325 MG PO SCH (08:34)
[2017-02-08] MEDS: Isosorbide Mononitrate ER TAB* 30 MG PO SCH (08:35)
[2017-02-08] MEDS: Ramipril CAP* 2.5 MG PO SCH (08:36)
[2017-02-08] MEDS: Spironolactone TAB* 25 MG PO SCH ×2 (08:38→09:41)
[2017-02-08] MEDS: Sertraline* 100 MG TAB PO SCH (08:38)
[2017-02-08] MEDS: Pregabalin CAP(*) 25 MG PO SCH ×2 (08:38→22:51)
[2017-02-08] MEDS: Cholecalciferol TAB* 1000 UNITS PO SCH (08:40)
--- NOTE | 2017-02-08 08:45 | PROCNOTE ---
Cardiology Procedure Note 02/08/2017 Dual chamber [employer] Pacemaker interrogation Placed Dr. Tawanda Lake ([phone]) on 12/06/2012 Presenting rhythm, atrial sensed, ventricular paced 3.5 years battery life Atrial lead: 418 ohms, measured and programmed sensitivity 0.3 mV RV lead: 437 ohms, 0.875 V @ 0.4 ms threshold (set 2.0 V @ 0.4 ms), measures sensitivity 9.3 mV, programmed 1.2 mV Set VVI lower rate 60 bpm Patient has been in atrial fibrillation for at least a year -DROSS SKIMMER 99.9% Impression: prison persistent atrial fibrillation Near 100% RV pacing
--- NOTE | 2017-02-08 09:28 | CONSULT ---
Subjective Date of Service: 02/08/17 Interval History: Admission Date: 02/06/17 Consult date: 02/08/2017 PMD/Service: Sara Quick MD Director Of Research: Dr. Leroy James at [facility]. CC: Weakness Reason for consult: CHF HISTORY OF PRESENT ILLNESS: Naz Kaur is an 86-year-old woman who is s/p transcatheter aortic valve replacement in the fall of 2012 for severe aortic stenosis complicated. 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 She subsequently had a fall and SDH 05/2013 and has been off anticoagulation. 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 She had a right TKR in 07/2016. Was treated for 5 days with macrobid 11/2016 for a possible UTI. Patient has become more weak and unsteady over the past month and in the ER several times since then due to falls. She became progressive weaker with loss of energy with edema poor appetite and was ultimately admitted to [facility]. She appear to be in low output heart failure with acute kidney insufficiency, ischemic vs. congestive hepatitis. Her laboratory work worsened with IV diuretics. A pacemaker evaluation showed extermination inspector persistent atrial fibrillation wtih complete RV pacing. An echocardiogram is as detailed below with what appears to be very significant aortic bioprosthetic dysfunction. She has an abnormal urinalysis and urine culture and is being treated for UTI. She knows the president, not the office services coordinator, confused on dates of medical procedures, thinks it is December, PAST MEDICAL HISTORY: Otherwise significant for the following medical problems: 1. Congestive heart failure. 2. History of atrial fibrillation. 3. History of complete heart block, status post pacemaker. 4. History of hypertension. 5. History of CVA 6. History of polymyalgia rheumatica. 7. History of fibromyalgia. 8. Osteoarthritis with severe arthritis of the right knee, status post total knee replacement. 9. History of depression. 10. Impingement, left shoulder with arthritis. 11. Hypothyroidism. 12. Status post TAVR for aortic stenosis. PAST SURGICAL HISTORY: Prior surgical procedures include: 1. Hemorrhoidectomy. 2. Vaginal reconstruction with mesh. 3. Thyroidectomy. 4. Cataract extraction. 5. Breast ductectomy. 6. Bilateral total knee replacements. 7. Hysterectomy. 8. TAVR. 9. Repair of rectovaginal fistula. CURRENT MEDICATIONS: As follows: 1. Lyrica 75 mg twice daily. 2. Levothyroxine 88 mcg daily. 3. Metoprolol 50 mg one-half daily. 4. Vitamin D3 2000 units daily. 5. Magnesium oxide 400 mg twice a day (the patient says she is not taking this) . 6. Cyanocobalamin B12 1000 mcg daily. 7. Spironolactone 25 mg daily (not clear if she is taking this). 8. Ramipril 2.5 mg daily. 9. Isosorbide mononitrate extended release 30 mg daily. 10. Furosemide 20 to 40 mg daily. 11. Loperamide 2 mg p.r.n. 12. Aspirin 325 mg daily. 13. Flecainide 100 mg daily. 14. Sertraline 100 mg daily. 15. Acetaminophen as needed. 16. Centrum Silver 1 daily. ALLERGIES/SENSITIVITIES: Are to SULFA, STATINS, KEFLEX (diarrhea), CHLOROQUINE PHOSPHATE, LEVAQUIN (tendinitis), EPINEPHRINE, NORVASC, PENICILLINS, ALEVE (GI bleeding), SUPRAX (ecchymosis). HABITS: Tobacco, none, but she is a former smoker. ETOH, none. FAMILY HISTORY: Noncontributory. SOCIAL HISTORY/PERSONAL HISTORY: The patient is . She lives in her own home. She has a full-time aide named Lita. Her is with her as well. She is retired. She spends her baker in [place], shields in [place], and also spends time in the [facility] area where she has a home. Medications Active Medications: Aspirin (Aspirin Tab*) 325 mg PO DAILY [facility] Last Admin: 02/08/17 08:34 Dose: 325 mg Cholecalciferol (Vitamin D Tab*) 2,000 units PO DAILY [facility] Last Admin: 02/08/17 08:40 Dose: 2,000 units Isosorbide Mononitrate (Imdur Er Tab*) 30 mg PO DAILY [facility] Last Admin: 02/08/17 08:35 Dose: Not Given Levothyroxine Sodium (Synthroid Tab*) 88 mcg PO DAILY@0600 [facility] Last Admin: 02/08/17 05:52 Dose: 88 mcg Pregabalin (Lyrica Cap(*)) 75 mg PO BID [facility] Last Admin: 02/08/17 08:38 Dose: 75 mg Ramipril (Altace Cap*) 2.5 mg PO DAILY [facility] Last Admin: 02/08/17 08:36 Dose: 2.5 mg Sertraline HCl (Zoloft*) 100 mg PO DAILY [facility] Last Admin: 02/08/17 08:38 Dose: 100 mg Spironolactone (Aldactone Tab*) 25 mg PO DAILY [facility] Last Admin: 02/08/17 08:38 Dose: Not Given Home Medications: Cholecalciferol TAB* [Vitamin D TAB*] 4,000 units PO DAILY 01/02/14 [History Confirmed 02/06/17] Cyanocobalamin TAB* [Vitamin B12 TAB*] 1,000 mcg PO DAILY 01/02/14 [History Confirmed 02/06/17] Flecainide TAB* [Tambocor TAB*] 100 mg PO BID 01/02/14 [History Confirmed ] Furosemide TAB* [Lasix TAB*] 40 mg PO DAILY 01/02/14 [History Confirmed 02/06/17 ] Hydrochlorothiazide TAB* [Hydrodiuril TAB*] 25 mg PO DAILY 01/02/14 [History Confirmed 02/06/17] Levothyroxine TAB* [Synthroid 75 MCG TAB*] 75 mcg PO DAILY 01/02/14 [History Confirmed 02/06/17] Metoprolol Succinate XL TAB* [Toprol XL TAB*] 50 mg PO DAILY 01/02/14 [History Confirmed 02/06/17] Multiple Vitamins W/ Minerals [Centrum Silver] 1 tab PO DAILY 01/02/14 [History Confirmed 02/06/17] Pregabalin [Lyrica] 75 mg PO QPM 01/02/14 [History Confirmed 01/03/17] Sertraline* [Zoloft*] 50 mg PO DAILY 01/02/14 [History Confirmed 02/06/17] Aspirin TAB* [Aspirin 325 MG TAB*] 325 mg PO BID 12/02/16 [History Confirmed ] Review of Systems - Measurements Intake and Output: Intake and Output Last 24 Hours 02/06/17 02/07/17 02/08/17 02/09/17 06:59 06:59 06:59 06:59 Intake Total 120 860 100 Output Total 400 450 Balance -280 410 100 Weight 200 lb 203 lb 6.4 oz Intake: Oral 120 860 100 Output: Urine 400 450 Other: Estimated Void Small Large # Bowel Movements 0 0 Estimated Stool Amount Medium # Voids 0 1 2 - Review of Systems Review of Systems Statement: All other review of systems negative, unless stated above. Objective Vital Signs: Temp Pulse Resp BP Pulse Ox 97.6 F 60 14 119/42 92 02/08/17 03:42 02/08/17 08:45 02/08/17 08:38 02/08/17 03:42 02/08/17 03:42 Oxygen Devices in Use Now: None Appearance: frail, elderly Ears/Nose/Mouth/Throat: Clear Oropharnyx, Mucous Membranes Moist Neck: - - + JVD Respiratory: Symmetrical Chest Expansion and Respiratory Effort, - - crackles R base Cardiovascular: RRR, - - 2/6 systolic murmur Abdominal: NL Sounds; No Tenderness; No Distention Extremities: - - 1_ edema Skin: No Rash or Ulcers Neurological: - - awake and will answer questions Laboratory Results: 02/08/17 05:48 02/08/17 05:48 Total Bilirubin 1.50 mg/dL (0.2-1.0) H 02/08/17 05:48 AST 289 U/L (13-39) H 02/08/17 05:48 ALT 302 U/L (7-52) H 02/08/17 05:48 Alkaline Phosphatase 83 U/L (34-104) 02/08/17 05:48 B-Natriuretic Peptide 3304 pg/mL (-100) H 02/08/17 05:48 Total Protein 6.6 g/dL (6.4-8.9) 02/08/17 05:48 Albumin 3.8 g/dL (3.2-5.2) 02/08/17 05:48 Globulin 2.8 g/dL (2-4) 02/08/17 05:48 Albumin/Globulin Ratio 1.4 (1-3) 02/08/17 05:48 Assessment/Plan There is new at least moderate aortic valvular regurgitation (probably intravalvular, cannot exclude paravalvular component, prior fistula that is know to RV/RA unchanged) and now the peak velocity is 4.1 m/s and mean gradient 41 mmHg across the aortic bioprothesis (as compared to 2.3 m/s and 11 mmHg on 2014 echocardiogram). In the setting of a lower LVEF (25% now vs. 35% previously), this is very highly suggestive of aortic bioprosthetic dysfunction of stenosis and/or regurgitation (valve not well visualized) as a cause of her cardiac decompensation. She also is in persistent atrial fibrillation and 100% RV paced which could also be contributing. AFebrile, CRP elevated. Entire picture consistent with low output CHF due to a combination of aortic bioprosthetic disease and LV dysfunction. ? infection contributing as well. - Check blood cultures - Stop flecainide (ordered) - Hold beta-shaw (ordered) - IV digoxin 0.25 mg x 1 now (ordered) - AMADOR would be needed to further evaluate the specific aortic bioprosthesis pathology but if she is not a candidate for re-intervention I am not sure would be worthwhile. - I have discussed with her regular rn discharge Dr. James who will review echocardiogram data. - I have discussed with Dr. Sara Quick plan is for patient to be transferred to [facility] for further evaluation and management - Prognosis guarded Thank you for allowing me to participate in the cardiovascular care of this patient. Please do not hesitate to contact me with questions or concerns.
[2017-02-08] MEDS: Meropenem 500MG PREMIX(*) 500 MG/50 ML BAG IV SCH (13:53)
[2017-02-08] MEDS ORDERED: Digoxin IV* 0.5 MG/2 ML AMP (0.25 MG/ML) ONE (15:12)
--- NOTE | 2017-02-08 23:09 | TRS ---
CC: Dr. Dario Mehta, [facility], Department of Cardiology TRANSFER SUMMARY: DATE OF ADMISSION: 02/06/17 DATE OF TRANSFER: 02/09/17. TRANSFER DIAGNOSES: 1. Acute systolic heart failure, with history of chronic systolic heart failure. 2. Aortic valve dysfunction with aortic stenosis and aortic insufficiency, paravalvular fistula, status post transcatheter aortic valve replacement. 3. History of atrial fibrillation. 4. History of complete heart block, status post pacemaker. 5. History of hypertension. 6. History of cerebrovascular accident with right hemiparesis. 7. History of fibromyalgia. 8. Remote history of polymyalgia rheumatica. 9. History of osteoarthritis, status post knee replacements and shoulder arthritis. 10. History of depression. 11. Hypothyroidism, treated. 12. Status post multiple surgeries: Knee replacements, hemorrhoidectomy, vaginal reconstruction with mesh, repair of rectovaginal fistula, hysterectomy, breast ductectomy, cataract extraction, thyroidectomy. 13. Transcatheter aortic valve replacement. 14. Elevated transaminases due to congestive heart failure. 15. Renal insufficiency due to congestive heart failure. 16. ESBL urinary tract infection. 17. Gallstones versus gallbladder sludge on ultrasound. 18. Multiple drug allergies/sensitivities including penicillin, cephalosporins , sulfa, statins, chloroquine, Amlodipine, Levaquin, epinephrine, Aleve. HISTORY: Naz Kaur is an 86-year-old woman admitted with worsening heart failure and rising liver enzymes and creatinine. Please see the dictated admission note for details of the present illness, past medical history, family history, social and personal history, review of systems, and physical examination. DIAGNOSTIC STUDIES/LAB DATA: CBC, on admission: WBC 7.9, H and H 11.1/35, MCV 90, PLT 151K. CBC on 02/08/17: WBC 6.9, 10.8/34, MCV 89, PLT 145K. Chemistries on 02/06/17: Sodium 136, potassium 4.6, chloride 98, CO2 31, BUN and creatinine 57/1.89, glucose 137. Rest of the comprehensive metabolic panel was abnormal for bilirubin 1.1, AST 191, ALT 203. Rest of the comprehensive metabolic panel was normal. CRP mildly elevated at 14.10. Repeat on 02/08/17, 25.20. Transaminases also gloria on 02/08/17, AST/ALT 289/302. BNP started at 2607 on 02/06/17, was 3304 on 02/08/17. BUN went from 57 to 65 and creatinine went from 1.89 to 2.01. Urinalysis on 02/08/17: Yellow, cloudy, specific gravity 1.011, pH 5, dipsticks positive for 1+ protein, 1+ blood, nitrite positive, leukocyte esterase trace, urine wbc's 1+, rbc's trace, squamous epithelial cells present, bacteria 1+, hyaline cast present. Urine osmolality was 409, creatinine was 106.50, sodium was 32. Renal sodium excretion was 0.41 % suggesting prerenal failure. Microbiology urine culture grew out greater than 100,000 ESBL E. coli, sensitive to gentamicin, meropenem, nitrofurantoin, piperacillin/tazobactam, and amoxicillin/clavulanic acid. Resistant to ampicillin, cefazolin, cefepime, ceftriaxone, ciprofloxacin, levofloxacin, tetracycline, trimethoprim sulfa, and aztreonam. Imaging: Chest x-ray on 02/06/17 showed stigmata of chronic obstructive pulmonary disease and probable pulmonary arterial hypertension, cardiomegaly, mild interstitial pulmonary edema. Noted was an endovascular aortic valve prosthesis, right atrial and right ventricular pacemaker leads. Ultrasound of the abdomen on 02/07/17 showed small gallstones or gallbladder sludge, bile ducts, pancreas, spleen, kidneys, IVC and aorta were all normal. Bladder ultrasound on 02/07/17 showed 116 mL in the bladder. No postvoid residual could be obtained because she was unable to urinate. Venous Doppler of the lower extremity showed no DVT. EKG on 02/06/17 showed ventricular paced rhythm. Transthoracic echocardiogram on 02/07/17 showed moderate concentric LVH, severe global hypokinesis, EF 25% to 30%, restrictive diastolic filling pattern, low global right ventricular systolic function, severe dilatation of the left atrium , right atrium moderately to severely dilated, aortic valve is a TAVR bioprosthetic valve. Moderate aortic regurgitation was noted. Severe prosthetic stenosis with peak velocity across the aortic valve greater than 4 m/ sec, mean gradient 40. Evidence of communication from aortic annulus to RV on color images 3 and 5 chamber views. Mitral annular calcification with moderately thickened mitral valve leaflets, moderate mitral regurgitation. Moderate tricuspid regurgitation, evidence of moderate pulmonary hypertension. Compared with the prior echo of 12/16/14, EF has diminished from 35% to 40%, restrictive diastolic filling was newly noted, flow seen from the AV annulus to the right side was seen previously. The AI was new. The severe was new. Degree of MR and TR has increased from mild. PA pressure was previously 29. HOSPITAL COURSE: The patient was admitted for workup of her congestive heart failure and IV diuretics. She initially received furosemide 40 mg IV and subsequently bumetanide 1 mg IV without significant diuresis. She did lose few pounds on the second day, but gained 3 pounds back on the third day. She did not have significant shortness of breath. She remained very weak and on was less responsive. She was a full code per her wishes. She was left on aspirin, not put on DVT prophylaxis with heparin because of recent falls including head injury and history of subdural hematoma in the past. Workup was done as noted above. She had Cardiology consultation with Dr. Reji Estes on 02/08/17. He felt that she had at least moderate aortic valvular regurgitation and aortic stenosis. In the setting of lower LVEF, he felt that it was very suggestive of aortic bioprosthetic dysfunction as a cause of her cardiac decompensation. He noted that the aortic valve was not well visualized on the echo. He also felt that she was in persistent atrial fibrillation and 100% RV paced which could also be contributing. He recommended checking blood cultures which were done. He stopped her flecainide and held her beta shaw. He gave her one dose of IV digoxin. He discussed her case with her regular job placement counselor , Dr. James. He felt her prognosis was guarded. In view of her worsening heart failure and need to have her valve function better assessed, it was felt best to transfer her back to [facility] where her original TAVR was done. She has been accepted by Dr. Dario Mehta at [facility]. She is being transferred via ambulance. A bed is now available and she will be transferred when arrangements can be made. Bronson conversation was had with her that this is a very serious condition and I was not sure what could be done and would be done at [facility], but that that was the best place for her to be.While in the hospital she was found to have a urinary tract infection, ESBL Escherichia coli. She was started on meropenem. DISCHARGE MEDICATIONS: At the time of discharge, her medications are as follows : 1. Aspirin 325 mg daily. 2. Vitamin D 2000 units daily. 3. Imdur 30 mg daily. 4. Levothyroxine 88 mcg daily. 5. Meropenem 500 mg IV q.12h. 6. Pregabalin 75 mg b.i.d. 7. Sertraline 100 mg daily. 8. At the present time, she has had 1 dose of digoxin IV. All of her other cardiac medications, spironolactone, ramipril, metoprolol, flecainide, and furosemide are being held. PHYSICAL EXAMINATION: Her most recent vital signs today are blood pressure 119/ 36, pulse 59, respirations 22, temperature 97.4, O2 sat 93% on room air. [id number] #: [id number] TERRI
[2017-02-09] MEDS: Meropenem 500MG PREMIX(*) 500 MG/50 ML BAG IV SCH (00:10)
[2017-02-09 04:23] VITALS: BP 112/35
[2017-02-09] MEDS: Levothyroxine TAB* 88 MCG TAB PO SCH (06:03)
[2017-02-09] MEDS: Aspirin TAB* 325 MG PO SCH (07:05)
[2017-02-09] MEDS: Sertraline* 100 MG TAB PO SCH (07:05)
[2017-02-09] MEDS: Cholecalciferol TAB* 1000 UNITS PO SCH (07:05)
[2017-02-09] MEDS: Pregabalin CAP(*) 25 MG PO SCH (07:05)
[2017-02-09] MEDS: Isosorbide Mononitrate ER TAB* 30 MG PO SCH (07:05)
== END 2017-02-09 07:55 | disposition short-term general hospital (02) | DRG 292 ==
LOC: MED 17:56
PROVIDERS: ADMIT Internal Medicine Geriatric Medicine; ATTEND Internal Medicine Geriatric Medicine
PROC: 4B02XSZ Measurement of Cardiac Pacemaker, External Approach (ICD-10-PCS; principal; 2017-02-08)
DX: I11.0 Hypertensive heart disease with heart failure (principal); I44.2 Atrioventricular block, complete; I27.20 Pulmonary hypertension, unspecified; I48.91 Unspecified atrial fibrillation; I08.1 Rheumatic disorders of both mitral and tricuspid valves; I69.351 Hemiplegia and hemiparesis following cerebral infarction affecting right dominant side; N39.0 Urinary tract infection, site not specified; T82.857A Stenosis of other cardiac prosthetic devices, implants and grafts, initial encounter; I50.23 Acute on chronic systolic (congestive) heart failure; M79.7 Fibromyalgia; F32.9 Major depressive disorder, single episode, unspecified; E03.9 Hypothyroidism, unspecified; N28.9 Disorder of kidney and ureter, unspecified; B96.20 Unspecified Escherichia coli [E. coli] as the cause of diseases classified elsewhere; Z16.11 Resistance to penicillins; Z16.29 Resistance to other single specified antibiotic; Z16.39 Resistance to other specified antimicrobial drug; Z79.1 Long term (current) use of non-steroidal anti-inflammatories (NSAID); Z95.2 Presence of prosthetic heart valve; Z95.0 Presence of cardiac pacemaker; Z79.82 Long term (current) use of aspirin; Z79.899 Other long term (current) drug therapy; Z88.6 Allergy status to analgesic agent; Z88.1 Allergy status to other antibiotic agents; Z88.0 Allergy status to penicillin; Z88.2 Allergy status to sulfonamides; Z88.8 Allergy status to other drugs, medicaments and biological substances; Z87.891 Personal history of nicotine dependence; R32 Unspecified urinary incontinence; Z96.651 Presence of right artificial knee joint; X58.XXXA Exposure to other specified factors, initial encounter
CPT/HCPCS: 36415; 71020; 76700; 76857; 80048; 80053; 80061; 81003; 81015; 82043; 82306; 82378; 82550; 82570; 82607; 82728; 82746; 83036; 83525; 83540; 83550; 83735; 83880; 83930; 83935; 84100; 84300; 84439; 84443; 84550; 85025; 85027; 86140; 86141; 87040; 87077; 87086; 87186; 90686; 93005; 93306; 93970; A9270-GY; C8929; J1160; J1940